=== PATIENT | female | born 1970 | race Caucasian/White ===

== ENCOUNTER 2017-11-17 10:18 | Emergency (ER) | payer BC, OTHER ==
[2017-11-17 10:36] VITALS: RESP 18; TEMP 98
--- NOTE | 2017-11-17 10:43 | CPEKG ---
Heart Rate: 72 RR Interval: 833 P-R Interval: 192 QRSD Interval: 76 QT Interval: 396 QTC Interval: 434 P [place]: 43 QRS [place]: -1 T Wave [place]: 52 EKG Severity - NORMAL ECG - EKG Impression: SINUS RHYTHM Electronically Signed By: Jerome Brock 18-Nov-2017 06:10:35
[2017-11-17] MEDS ORDERED: KETOROLAC 15 MG/1 ML SDV IVP ONE (10:55)
[2017-11-17 11:19] LABS: PLATELET COUNT 250 10^3/uL (150-400)
--- NOTE | 2017-11-17 11:25 | EDPHY ---
H & P Time Seen by Provider: 11/17/17 10:32 HPI/ROS: CHIEF COMPLAINT: Chest pain HISTORY OF PRESENT ILLNESS: 47-year-old female presents emergency department reporting that over the last month she has had intermittent, almost daily, episodes of a achy discomfort just to the left of her sternum. Pain is described as a pressure and ache. Seems to be worse with palpation of the area. Area of discomfort is well localized just to the left of the lower sternum. Patient denies an exertional component to the pain. She cannot clearly identify any precipitating factors. Does not appear to be related to eating. Does not wake her up at night. It is not present when she is walking. Does not make her feel short of breath. No radiation of the pain. No diaphoresis. No nausea. No vomiting. No recent cold, cough, or upper respiratory infection symptoms. No clear relieving factors. Patient does travel weekly for work, flying to and from [place] once a week. Total time on the plane is 5 hr per week. No history of GERD or reflux. No smoking history. No history of diabetes, hypertension, hyperlipidemia. Patient is not postmenopausal. No estrogen use. She does report increased stress and increased alcohol intake recently. Patient did go to an urgent care yesterday while she was having discomfort. EKG at that time demonstrates normal sinus rhythm. She was advised to come to the emergency department but has waited until today. No fever, chills, shortness of breath, palpitations, no syncope, vomiting, diarrhea, urinary complaints, headache, lightheadedness. REVIEW OF SYSTEMS: Aside from elements discussed in the HPI, a comprehensive 10-point review of systems was reviewed and is negative. PAST MEDICAL HISTORY: Sleep apnea. SOCIAL HISTORY: Nonsmoker. Recently relocated to [place]. Increased stress from work. VITAL SIGNS: see nurse's notes. GENERAL: Well-developed, well-nourished, currently in no discomfort. HEENT: Atraumatic. Eyes: No injection or icterus. Oropharynx: No erythema , no injection, no swelling. Neck: No JVD, no bruits, supple with no adenopathy. LUNGS: Clear to auscultation bilaterally, no wheezes, rhonchi or rales. CARDIAC: Regular rate and rhythm, no murmurs, no rubs, no gallops. CHEST: Patient indicates area of tenderness is along lower sternal border. Mildly tender to palpation. No crepitus. ABDOMEN: Soft, nontender, nondistended, bowel sounds normal. BACK: No CVA tenderness. EXTREMITIES: No trauma. No clubbing, cyanosis or edema. Range of motion is normal throughout. NEURO: Alert and oriented , grossly nonfocal. SKIN: No diaphoresis, warm and dry, no rash. Smoking Status: Never smoked Constitutional: Initial Vital Signs Temperature (C) 36.6 C 11/17/17 10:31 Heart Rate 74 11/17/17 10:31 Respiratory Rate 18 11/17/17 10:31 Blood Pressure 124/66 H 11/17/17 10:31 O2 Sat (%) 98 11/17/17 10:31 O2 Delivery Mode Room Air Allergies/Adverse Reactions: No Known Allergies Allergy (Unverified 11/17/17 10:31) Home Medications: Medication Instructions Recorded NK [No Known Home Meds] 11/17/17 Medical Decision Making - Diagnostics EKG Interpretation: 12-LEAD EKG: Please see the full report in [facility]. My interpretation: Normal sinus rhythm, no ST or T-wave changes Imaging Results: Impression: Negative. No source for chest pain identified. Dictated By: Solis Santos MD Imaging: I viewed and interpreted images myself ED Course/Re-evaluation: 47-year-old female with intermittent episodes of left-sided chest discomfort. On examination the area is just to the left of the sternum at the lower sternal edge. Discomfort has been present intermittently for a month. Evaluation emergency department included a nonischemic EKG, normal troponin, negative D-dimer, a normal chest x-ray. Heart score: History, 0. EKG, 0. Age, 1. Risk factors, 0. Troponin, 0. I believe the patient discharged home at this point with follow up with Cardiology in consideration of potential stress testing. She was advised to consider taking ibuprofen on a regular basis for treatment of potential costochondritis or other chest wall cause of her discomfort. Differential Diagnosis: After history and physical examination, the differential for chest pain was considered, including but not limited to, myocardial ischemia, acute coronary syndrome, pulmonary embolus, chest wall pain, gastritis, GERD, pleural inflammation and pulmonary infectious causes. - Data Points Laboratory Results: Laboratory Results 11/17/17 11:15 11/17/17 11:15 Medications Given: Discontinued Medications Ketorolac Tromethamine (Toradol) 15 mg IVP EDNOW ONE Stop: 11/17/17 10:56 Last Admin: 11/17/17 11:20 Dose: 15 mg Departure - Departure Disposition: Home, Routine, Self-Care Clinical Impression: Chest wall pain Chest pain Qualifiers: Chest pain type: other chest pain Qualified Code(s): R07.89 - Other chest pain ; R07.8 - Other chest pain Condition: Good Instructions: Chest Pain (ED), Costochondritis (ED) Additional Instructions: 1. Based upon the testing done in the Emergency Department today we see no evidence of a heart attack. 2. We are unable to fully exclude coronary artery disease based upon the testing available in the Emergency Department. 3. For this reason, we would like you to follow up with your primary care physician for consideration of additional testing within the next 3 days. 4. Consider using ibuprofen on a regular basis for the next 1-2 days to see if this helps with the discomfort. 5. Please return to the Emergency Department immediately for worsening chest pain, difficulty breathing, nausea vomiting, sweating, palpitations, fainting, or other concerns. Referrals: Tayo Hinson MD [Primary Care Provider] - As per Instructions
[2017-11-17 12:27] VITALS: BP 124/66; PULSE 77; O2SAT 94
== END 2017-11-17 12:25 | disposition home or self-care (01) ==
LOC: CED 10:18
DX: R07.89 Other chest pain (principal)
CPT/HCPCS: 71046-PO; 80048-PO; 80076-PO; 83690-PO; 84484-PO; 84703-PO; 85025-PO; 85378-PO; 96374; J1885